=== PATIENT | female | born 1995 | race Caucasian/White ===

== ENCOUNTER 2018-01-29 01:09 | Emergency (ER) | payer MEDICAID, OTHER ==
[~2018-01-29] VITALS: Ht 160 cm; Wt 51.0 kg
[2018-01-29 01:45] VITALS: BP 118/82
== END 2018-01-29 05:05 | disposition left against medical advice (07) ==
LOC: ER 01:09
DX: Z53.21 Procedure and treatment not carried out due to patient leaving prior to being seen by health care provider (principal)